=== PATIENT | female | born 1945 | race Caucasian/White ===

== ENCOUNTER 2020-04-20 14:04 | Outpatient (CLI) | payer MEDICARE, SELFPAY ==
--- NOTE | ~2020-04-20 | MR_ITS ---
EXAMINATION: MR lumbar spine wo [facility] EXAM DATE: 04/20/2020 15:31 INDICATION: Low back pain, right-sided sciatica. TECHNIQUE: Multi-sequential, multiplanar MR images of the lumbar spine were obtained without contrast . Sagittal T1, T2, T2 fat saturation images. Axial T2 weighted images. Comparison is made to prior examination from 12/11/2009. FINDINGS: There is 4 mm retrolisthesis T12 on L1 and L1 on L2. There is 6 mm anterolisthesis L5 on S1 with moderate to severe loss of this disc height. Moderate loss of the disc heights from T11 through L2. There is 2 mm anterolisthesis L3 on L4. The conus medullaris terminates at the L1/2 level and hernandez s normal signal intensity and morphology. There are no suspicious marrow signal abnormalities. [place] soft tissue is unremarkable. Level by level evaluation: T11-12: There is a mild diffuse disc bulge. Facet arthropathy: Mild. Neural foraminal stenosis: No stenosis. Central canal stenosis: No stenosis. T12-L1: There is a mild to moderate diffuse disc bulge. Facet arthropathy: Mild. Neural foraminal stenosis: Mild to moderate left left, mild right. Central canal stenosis: Mild to moderate. L1-L2: There is a moderate diffuse disc bulge. Facet arthropathy: Moderate. Neural foraminal stenosis: Moderate bilateral. Central canal stenosis: Mild to moderate. L2-L3: There is a mild to moderate diffuse disc bulge. Facet arthropathy: Moderate. Neural foraminal stenosis: Moderate bilateral. Central canal stenosis: Mild to moderate. L3-L4: There is a moderate diffuse disc bulge. Facet arthropathy: Moderate to severe. Neural foraminal stenosis: Mild to moderate left, mild right. Central canal stenosis: Moderate. L4-L5: There is a moderate diffuse disc bulge. Facet arthropathy: Moderate to severe . Ligamentum flavum enlargement. Neural foraminal stenosis: Moderate left, mild to moderate right. Central canal stenosis: Moderate. L5-S1: There is a moderate to large diffuse disc bulge. Facet arthropathy: Moderate to severe . Ligamentum flavum enlargement . Neural foraminal stenosis: Moderate to severe bilateral, left greater than right. Central canal stenosis: Moderate. Amount of L5-S1 anterolisthesis neural foraminal stenosis probably not significant changed. There has been otherwise overall some progression in spondylosis detailed above. IMPRESSION: 1. L5-S1 grade 1 anterolisthesis, moderate to severe bilateral neural foraminal stenosis. 2. Lesser spondylosis at other levels. Reviewed, dictated and finalized at location B. IMPRESSION: 1. L5-S1 grade 1 anterolisthesis, moderate to severe bilateral neural foramina l stenosis. 2. Lesser spondylosis at other levels.
== END 2020-04-20 14:05 | disposition home or self-care (01) ==
PROVIDERS: PCP Family Medicine; Visit Provider Nurse Practitioner Family
DX: M54.41 Lumbago with sciatica, right side (principal)
CPT/HCPCS: 72148

== ENCOUNTER 2022-11-27 13:17 | Outpatient (CLI) | payer MEDICARE, SELFPAY ==
--- NOTE | ~2022-11-27 | US_ITS ---
EXAMINATION: US renal BI DATE: 11/27/2022 13:40 INDICATION: E87.5 - Hyperkalemia TECHNIQUE: Multiple grayscale and Doppler ultrasound images of the kidneys were obtained. COMPARISON: None. FINDINGS: The right kidney measures 9.3 x 4.0 x 4.5 cm. The left kidney measures 9.5 x 5.5 x 3.7 cm. The kidney s demonstrate normal parenchymal echogenicity. There is no hydronephrosis. The bladder is nondistende d. IMPRESSION: Bladder not well evaluated due to lack of distention, otherwise unremarkable renal sonogram findings. Reviewed, dictated and finalized at location K. IMPRESSION: Bladder not well evaluated due to lack of distention, otherwise unremarkable re nal sonogram findings.
== END 2022-11-27 13:18 | disposition home or self-care (01) ==
PROVIDERS: PCP Family Medicine; Visit Provider Internal Medicine Nephrology
DX: E87.5 Hyperkalemia (principal)
CPT/HCPCS: 76775

== ENCOUNTER 2023-12-06 11:09 | Outpatient (CLI) | payer MEDICARE, SELFPAY ==
--- NOTE | ~2023-12-06 | CT_ITS ---
EXAMINATION: CT lumbar spine wo con DATE: 12/06/2023 11:21 INDICATION: Lumbar spinal fusion. Right leg weakness and pain. TECHNIQUE: Computed tomography (CT) of the lumbar spine was performed without intravenous contrast. A utomated exposure control and iterative reconstruction technique were employed. The dose-length produ ct was 926.95 mGy-cm. COMPARISON: Lumbar spine MRI 04/20/2020 FINDINGS: There is 3 mm retrolisthesis of T12 on L1 and L1 on L2, 4 mm anterolisthesis of L3 on L4, a nd 6 mm anterolisthesis of L5 on S1. There are changes of anterior and posterior fusion procedures fr om L4 to S1 with interbody devices, healed interbody bone graft, and pedicle screws. There is mild ch ronic anterior wedging of T12 vertebral body. There is severely decreased disc height at T11-T12 and T12-L1, moderately decreased disc height at L1-L2, mildly decreased disc height at L2-L3, and moderat pauline decreased disc height at L3-L4. The following disc levels are specifically discussed: L1-L2: The disc is bulging. There is mild bilateral facet joint osteoarthritis. There is severe right and moderate left neural foraminal stenosis. There is mild central canal stenosis. L2-L3: The disc is bulging. There is severe bilateral facet joint osteoarthritis. There is moderate b ilateral neural foraminal stenosis. There is mild central canal stenosis. L3-L4: The disc is bulging. There is severe bilateral facet joint osteoarthritis. There is mild bilat eral neural foraminal stenosis. There is moderate central canal stenosis. L4-L5: There is mild bilateral facet joint hypertrophy. There is moderate right and mild left neural foraminal stenosis. There is mild central canal stenosis with posterior decompression. L5-S1: There is mild left facet joint hypertrophy. There is moderate left neural foraminal stenosis. There is mild central canal stenosis with posterior decompression. IMPRESSION: 1. Severe lumbar and lower thoracic spondylosis. 2. Anterior and posterior fusion procedures from L4 to S1. Reviewed, dictated and finalized at location A.
== END 2023-12-06 11:10 ==
LOC: GOSHIMG 11:09
PROVIDERS: PCP Family Medicine; Visit Provider Nurse Practitioner Family
DX: M43.04 Spondylolysis, thoracic region (principal); M43.06 Spondylolysis, lumbar region; Z98.1 Arthrodesis status
CPT/HCPCS: 72131

== ENCOUNTER 2024-06-18 12:26 | Outpatient (CLI) | payer MEDICARE, SELFPAY ==
--- NOTE | ~2024-06-18 | XR_ITS ---
EXAMINATION: XR hip RT 2V w AP pelvis DATE: 06/18/2024 12:40 INDICATION: Right hip pain. TECHNIQUE: An anteroposterior view of the pelvis and 2 views of right hip were obtained. COMPARISON: Hip radiographs 11/05/13 FINDINGS: Alignment is normal. No fracture. There is moderate lumbar spondylosis. There are changes o f anterior and posterior fusion procedures from L4 to S1. There is severe osteoarthritis of the hips. Osteitis pubis is noted. IMPRESSION: 1. Severe osteoarthritis of the hips. Reviewed, dictated and finalized at location A. 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
== END 2024-06-18 12:27 | disposition home or self-care (01) ==
LOC: MICIMG 12:28
PROVIDERS: PCP Family Medicine; Visit Provider Nurse Practitioner Family
DX: M16.11 Unilateral primary osteoarthritis, right hip (principal)
CPT/HCPCS: 73502

== ENCOUNTER 2024-07-06 13:03 | Outpatient (CLI) | payer MEDICARE, SELFPAY ==
--- NOTE | ~2024-07-06 | MR_ITS ---
MRI of the right hip Clinical history: Pain Technique: Coronal T1-weighted, T2-weighted, and proton-density fat-sat images, and axial T1-weighted and proton-density fat-sat images were acquired through the pelvis. Coronal T2-weighted images and c oronal, axial, and sagittal proton-density fat-sat images were acquired through the right hip. Findings: There is no fracture or avascular necrosis of either hip. There is extensive high-grade cho ndromalacia throughout the right hip joint with small femoral head neck junction osteophytes. There i s probable mild reactive marrow edema in the anterior acetabulum. Small right hip joint effusion is p resent, likely reactive. There is joint space narrowing superiorly and superomedially. There is proba ble degenerative tearing of the anterior right acetabular labrum. There is also diffuse high-grade chondromalacia the left hip joint, with small femoral head neck junc tion osteophytes. There is susceptibility artifact at the region of the right greater trochanter, extending to the late ral soft tissues, compatible postoperative change. No acute tendon rupture/identified. No acute muscl e signal abnormality seen. No fatty atrophy evident. No soft tissue mass or fluid collection evident. IMPRESSION: Moderate to advanced bilateral hip joint osteoarthritis, right mildly worse than left, as detailed ab ove. There is small right joint effusion, likely reactive. Probable degenerative tearing of the anterior right acetabular labrum. Postoperative change about the right greater trochanter, with susceptibility artifact extending from this region to the lateral soft tissues. Correlate with prior surgical history. Reviewed, dictated and finalized at location . SPRAYER IMPRESSION: Moderate to advanced bilateral hip joint osteoarthritis, right mildly worse vanessa n left, as detailed above. There is small right joint effusion, likely reactive . Probable degenerative tearing of the anterior right acetabular labrum. Postoperative change about the right greater trochanter, with susceptibility ar tifact extending from this region to the lateral soft tissues. Correlate with p rior surgical history.
== END 2024-07-06 13:04 | disposition home or self-care (01) ==
LOC: GOSHIMG 13:04
PROVIDERS: PCP Family Medicine; Visit Provider Nurse Practitioner Family
DX: M16.0 Bilateral primary osteoarthritis of hip (principal); Z98.890 Other specified postprocedural states
CPT/HCPCS: 73721

== ENCOUNTER 2024-10-20 10:58 | Outpatient (CLI) | payer MEDICARE, SELFPAY ==
--- NOTE | 2024-10-20 11:31 | ECG_ITS ---
Test Date: 2024-10-20 11:50:38 Measurements Intervals [place] Rate: 68 P: 53 RI: 165 QRS: -48 QRSD: 101 T: 62 QT: 371 QTc: 397 Interpretive Statements SINUS RHYTHM LEFT ANTERIOR FASCICULAR BLOCK [QRS AXIS <= -45, QR IN I, RS IN II] MODERATE VOLTAGE CRITERIA FOR LVH, CONSIDER NORMAL VARIANT [MEETS CRITERIA IN ONE OF: R(aVL), S(V1), R(V5), R(V5/V6)+S(V1)] POSSIBLE SEPTAL MYOCARDIAL INFARCTION , PROBABLY OLD [30 ms Q WAVE IN V1/V2] No previous ECG available for comparison Electronically Signed On 10-20-2024 16:45:02 CDT by Abdias Craig M.D.
[2024-10-20 11:52] LABS: Hematocrit 38.4 % (37.0-47.0); Hemoglobin 12.3 g/dL (12.0-15.0)
[2024-10-20 12:04] LABS: Albumin Level 4.1 g/dL (3.5-5.1); Estimated Glomerular Filt Rate > 60; Glucose 106 mg/dL (65-110)
--- OUTSIDE RECORDS SUMMARY | 2024-10-20 13:06 | XMS_ITS | CONTINUITY OF CARE DOCUMENT ---
Author Name aakash finn Address Unknown Organization [facility] Address [address] [place] [address] Phone [phone] Care Team Providers Care Nuclear Test Technician Name Role Phone XAVIER ALEX, PENNIE F Unavailable [phone] INSURANCE PROVIDERS Payer name Policy type / Coverage type [place] red green party ID [facility] [id number]
--- OUTSIDE RECORDS SUMMARY | 2024-10-20 13:06 | XMS_ITS | Clinical Summary ---
Author Organization [facility] Address [address] [address] Phone Care Team Providers Care Flume Ride Operator Name Role Phone Unavailable Primary Care Provider Unavailabl e Allergies No known active allergies Medications Medication Sig Dispensed Refills Start Date End Date Status Coenzyme Q10 (COQ10) 100 MG capsule 1 daily 0 04/26/2018 Active aspirin 325 MG tablet 1 daily 0 04/26/2018 Act sera atorvastatin (LIPITOR) 10 MG tablet 1 daily 0 04/26/2018 Active cinnamon 500 MG capsule 1 daily 0 04/26/2018 Active amLODIPine (NORVASC) 5 MG tablet TAKE 1 TABLET BY MOUTH EVERY DAY 90 tablet 4 01/08/2022 Active Active Problems Problem Noted Date Diagnosed Date Hyperkalemia 04/28/2018 Essential (primary) hypertension 04/28/2018 Osteoarthritis 04/28/2018 Hyperlipidemia 04/28/2018 Immunizations Name Administration Dates Next Due Influenza Split High Dose Pr eservative Free IM 05/07/2017,05/07/2016,05/06/2015,05/05 Pneumococcal Polysaccharide 03/03/2013 Tetanus 06/28/2006 Family History Medical History Relation Comments Kidney disease Neg Hx Social History Tobacco Use Types Packs/Day Years Used Date Smoking Tobacco: Never Smokeless Tobacco: Never Alcohol Use Standard Drinks/Week Comments Not Currently 0 (1 standard drink = 0.6 oz pur e alcohol) Sex and Gender Information Value Date Recorded Sex Assigned at Not on file Gender Identity Not on file Sexual Orientation Not on file Last Filed Vital Signs Vital Sign Reading Time Taken Comments Blood Pressure 138/70 09/15/2018 12:01 AM CAFETERIA ATTENDANT Pulse 60 09/15/2018 12:01 AM CAFETERIA ATTENDANT Temperature 35.6 C (96 F) 09/15/2018 12:01 AM CAFETERIA ATTENDANT Respiratory Rate - - Oxygen Saturation - - Inhaled Oxygen Concentration - - Weight 104 kg (230 lb) 09/15/2018 12:01 AM CAFETERIA ATTENDANT Height 172.7 cm (5' 8 ) 09/15/2018 12:01 AM CAFETERIA ATTENDANT Body Mass Index 34.97 09/15/2018 12:01 AM CAFETERIA ATTENDANT Plan of Treatment Health Maintenance Due Date Last Done Comments Pneumococcal PPSV23/PCV13 65 + Years / Low and Medium Risk (2 of 3 - PCV) 03/03/2014 03/03/2013 Influenza Vaccine (#1) 2024
--- OUTSIDE RECORDS SUMMARY | 2024-10-20 13:06 | XMS_ITS | Clinical Summary ---
Author Organization [facility] Address [facility] [place] [address] Care Team Providers Care Rental Salesperson Name Role Phone Gregory Pineda MD Primary Care Provider [phone] Allergies Active Allergy Reactions Criticality Noted Date Comments Tramadol Other (see comment) 01/09/2024 Confusion. Medications acyclovir (ZOVIRAX) 400 MG tablet Take 2 tablets (800 mg total) by mouth 2 (two) times daily. Active nabumetone (RELAFEN) 500 MG tablet Take 1 tablet (500 mg total) by mouth 2 (two) times daily. Active omeprazole (PRILOSEC) 10 MG capsule Take 2 capsules (20 mg total) by mouth daily. Active amLODIPine (NORVASC) 5 MG tablet Take 1 tablet (5 mg total) by mouth daily. Active atorvastatin (LIPITOR) 10 MG tablet Take 1 tablet (10 mg total) by mouth nightly at bedtime. Active aspirin 81 MG chewable tablet Chew 1 tablet (81 mg total) by mouth daily. Active gabapentin (NEURONTIN) 400 MG capsule Take 300 mg by mouth daily. Active Social History Tobacco Use Types Packs/Day Years Used Date Smoking Tobacco: Never Smokeless Tobacco: Never Tobacco Cessation:Counseling Given: Not Answered Alcohol Use Standard Drinks/Week Comments Never 0 (1 standard drink = 0.6 oz pur e alcohol) Comments Unknown Sex and Gender Information Value Date Recorded Sex Assigned at Not on file Legal Sex Female 9:40 PM CDT Gender Identity Not on file Sexual Orientation Not on file Last Filed Vital Signs Vital Sign Reading Time Taken Comments Blood Pressure 183/68 01/20/2024 8:35 AM CDT Pulse 70 01/20/2024 8:30 AM CDT Temperature 36.3 C (97.4 F) 01/20/2024 7:21 AM CDT Respiratory Rate 18 01/20/2024 8:30 AM CDT Oxygen Saturation 96% 01/20/2024 8:30 AM CDT Inhaled Oxygen Concentration - - Weight 95.3 kg (210 lb) 01/09/2024 9:36 AM CDT Height 167.6 cm (5' 6 ) 01/09/2024 9:36 AM CDT Body Mass Index 33.89 01/09/2024 9:36 AM CDT Plan of Treatment Health Maintenance Due Date Last Done Comments Hepatitis C 11/29/1963 DTaP, Tdap and Td Vaccines (1 - Tdap) 06/29/2006 06/28/2006 Annual Medicare Wellness Visit 2010 Dexa Scan (General) 2010 Pneumococcal Vaccine: 65+ Years (2 of 2 - PCV) 03/03/2014 03/03/2013 RSV Immunization or 60+ Years (1 - 1-dose 75+ series) 2020 COVID-19 Vaccine ( season) 2024 05/28/2023, 06/28/2021, 11/15/2020, Additional history exists Influenza Adult (#1) 2024 05/07/2017, 05/07/2016, 05/06/2015, Additional history exists Zoster Vaccines Completed 08/01/2020, 02/03/2020 Meningococcal B Vaccine Aged Out No l onger eligible based on patient's age to complete this topic Meningococcal Vaccine Aged Out No roxy sim eligible based on patient's age to complete this topic RSV Immunizations Under 20 Months Aged Out No longer eligible based on patient's age to complete this topic Medical Devices Implanted Type Area Centrex Radio Operator Device Identifier Shelf Expiration Date Model / Serial / Lot Tecnis 1-Piece Iol With Tecnic Simplicity Delivery System Implanted:Qty: 1 on 01/20/2024 by Shravan Borrego MD at [facility] 05/18/2026 / [id number] / [place] [address] [facility] Care Teams Rental Salesperson Relationship Specialty Start Date End Date Gregory Pineda MD [address] [place] [address] PCP - General FAMILY PRACTICE 01/07/24
== END 2024-10-20 10:59 | disposition home or self-care (01) ==
PROVIDERS: PCP Family Medicine; Visit Provider Orthopaedic Surgery
DX: E78.2 Mixed hyperlipidemia (principal); E87.5 Hyperkalemia; E55.9 Vitamin D deficiency, unspecified; I12.9 Hypertensive chronic kidney disease with stage 1 through stage 4 chronic kidney disease, or unspecified chronic kidney disease; N18.31 Chronic kidney disease, stage 3a
CPT/HCPCS: 36415; 82040; 82565; 82947; 85014; 85018; 93005

== ENCOUNTER 2024-11-04 08:11 | Outpatient (CLI) | payer MEDICARE, SELFPAY ==
--- NOTE | ~2024-11-04 | NM_ITS ---
EXAMINATION: NM geovany stress w perfusion DATE: 11/04/2024 10:48 INDICATION: Left testicular block TECHNIQUE: Rest images were obtained following intravenous administration of 11.2 mCi Tc99m tetrofosm in (Myoview). The patient was infused intravenously with Lexiscan (Regadenoson). Then, 33.5 mCi Tc99m tetrofosmin (Myoview) was administered intravenously, and stress images were obtained. Data was ankur nstructed into short axis and horizontal and vertical long axis SPECT images. Gated SPECT images were also obtained. COMPARISON: None. FINDINGS: There is no definite reversible or fixed perfusion abnormality to suggest ischemia or infar ction. There is normal left ventricular chamber size, wall motion and ejection fraction. Left ventr icular ejection fraction measures >70%. IMPRESSION: 1. Normal myocardial perfusion at rest and during stress. 2. Left ventricular ejection fraction measuring >70%. Reviewed, dictated and finalized at location B.
--- OUTSIDE RECORDS SUMMARY | 2024-11-04 08:26 | XMS_ITS | Clinical Summary ---
Author Organization [facility] Address [facility] [place] [address] Care Team Providers Care Lead Business Systems Analyst Name Role Phone Gregory Pineda MD Primary Care Provider [phone] Allergies Active Allergy Reactions Criticality Noted Date [...] 2024 05/28/2023, 06/28/2021, 11/15/2020, Additional history exists Zoster Vaccines Completed 08/01/2020, [...] this topic Medical Devices Implanted Type Area Back Shoe Worker Device Identifier Shelf Expiration Date Model / Serial / Lot Tecnis 1-Piece Iol With Tecnic Simplicity Delivery System Implanted:Qty: 1 on 01/20/2024 by Shravan Borrego MD at [facility] 05/18/2026 / [id number] / Insurance [facility] Care Teams Lead Business Systems Analyst Relationship Specialty Start Date End Date Gregory Pineda MD [address] [address] PCP - General FAMILY PRACTICE 01/07/24
--- OUTSIDE RECORDS SUMMARY | 2024-11-04 08:26 | XMS_ITS | Clinical Summary ---
Author Organization [facility] Address [address] [place] [address] Phone Care Team Providers Care Deck Mate Name Role Phone Unavailable Primary Care Provider Unavailabl e Allergies No known active allergies Medications Coenzyme Q10 (COQ10) 100 MG capsule 1 daily 0 04/26/2018 Active aspirin 325 MG tablet 1 daily 0 04/26/2018 Active atorvastatin (LIPITOR) 10 MG tablet 1 daily 0 04/26/2018 Active cinnamon 500 MG capsule 1 daily 0 04/26/2018 Active amLODIPine (NORVASC) 5 MG tablet TAKE 1 TABLET BY MOUTH EVERY DAY 90 tablet 4 01/08/2022 Active Active Problems Problem Noted Date Diagnosed Date Hyperkalemia 04/28/2018 Essential (primary) hypertension 04/28/2018 Osteoarthritis 04/28/2018 Hyperlipidemia 04/28/2018 Immunizations Immunization Administration Dates Next Due Influenza Split High [...] at Not on file Legal Sex Female 9:06 AM MST Gender Identity Not on file Sexual Orientation Not on file Last Filed Vital Signs Vital Sign Reading Time Taken Comments Blood Pressure 138/70 09/15/2018 12:01 AM PROTECTION MGR Pulse 60 09/15/2018 12:01 AM PROTECTION MGR Temperature 35.6 C (96 F) 09/15/2018 12:01 AM PROTECTION MGR Respiratory Rate - - Oxygen Saturation - - Inhaled Oxygen Concentration - - Weight 104 kg (230 lb) 09/15/2018 12:01 AM PROTECTION MGR Height 172.7 cm (5' 8 ) 09/15/2018 12:01 AM PROTECTION MGR Body Mass Index 34.97 09/15/2018 12:01 AM PROTECTION MGR Plan of Treatment Health Maintenance Due Date Last Done Comments Pneumococcal PPSV23/PCV13 65 + Years / Low and Medium Risk (2 of 3 - PCV) 03/03/2014 03/03/2013 Influenza Vaccine (Season Ended) 2025
--- OUTSIDE RECORDS SUMMARY | 2024-11-04 08:26 | XMS_ITS | CONTINUITY OF CARE DOCUMENT ---
Author Name aakash finn Address Unknown Organization [facility] Address [address] [place] [address] Phone [phone] Care Team Providers Care Metal Tank Erector Name Role Phone XAVIER ALEX, PENNIE F Unavailable INSURANCE PROVIDERS Payer name Policy type / Coverage type [place] red libertarian ID [facility] [id number]
--- NOTE | 2024-11-04 08:46 | EST_ITS ---
Patient Info Name: Agustin Hood Age: 78 years : 1945 Gender: Female Ht: 66 in Wt: 220 lbs BSA: 2.20 m2 HR: 80 bpm BP: 206 / 81 mmHg Exam Date: 11/04/2024 9:41 AM Exam Location: Echo Lab Patient Status: Outpatient Admit Date: 11/04/2024 Staff Ordering Physician: Gregory Pineda MD Attending Provider: Gregory Pineda MD Exercise Technologist: hussein arboleda Exercise Physician: Christo Walker DO Exam Type: CA stress geovany w NM Study Info Indications - left anterior fascicular block A regadenoson stress test was performed. Summary 1. 1. Negative lexiscan stress test for ischemic ST changes by ECG criteria. 2. 2. Baseline hypertension. 3. 3. Nuclear scan to follow and will be reported separately. Please correlate with it. 4. 4. Patient informed of the above results. Protocol: Lexiscan Stress ECG Details Stage: REST Duration (min): 3 min : 32 sec HR (bpm): 74 SBP (mmHg): 206 DBP (mmHg): 81 Stage: REST Duration (min): 9 min : 50 sec HR (bpm): 78 SBP (mmHg): 206 DBP (mmHg): 81 Stage: STAGE 1 Duration (min): 0 min : 59 sec HR (bpm): 98 SBP (mmHg): 206 DBP (mmHg): 81 Stage: RECOVERY Duration (min): 1 min : 0 sec HR (bpm): 93 SBP (mmHg): 193 DBP (mmHg): 69 Stage: RECOVERY Duration (min): 1 min : 35 sec HR (bpm): 90 SBP (mmHg): 193 DBP (mmHg): 69 Rest HR: 78 bpm Peak HR: 99 bpm Rest Sys BP: 206 mmHg Peak Sys BP: 193 mmHg Max Pred HR: 142 bpm % Max Pred HR: 70 % Target HR: 121 bpm Max RPP: 19,107 bpm*mmHg Termination Reason: Completed protocol Cardiac Symptoms: None Total Time: 1 min : 0 sec Rest Wilson BP: 81 mmHg Peak Wilson BP: 69 mmHg Total Dose: 0.4 mg Resting ECG Sinus rhythm. Stress ECG No ST changes. Arrhythmias None. Report Signatures
== END 2024-11-04 08:12 | disposition home or self-care (01) ==
PROVIDERS: PCP Family Medicine; Visit Provider Family Medicine
DX: I21.29 ST elevation (STEMI) myocardial infarction involving other sites (principal); I44.4 Left anterior fascicular block; M25.551 Pain in right hip; S73.199A Other sprain of unspecified hip, initial encounter; S76.019A Strain of muscle, fascia and tendon of unspecified hip, initial encounter; X58.XXXA Exposure to other specified factors, initial encounter
CPT/HCPCS: 78452; 93017; A9502; J2785

== ENCOUNTER 2024-12-25 09:43 | Outpatient (CLI) | payer MEDICARE, SELFPAY ==
--- OUTSIDE RECORDS SUMMARY | 2024-12-25 09:58 | XMS_ITS | Clinical Summary ---
Author Organization [facility] Address [address] [place] [address] Phone Care Team Providers Care Verifier Operator Name Role Phone Unavailable Primary Care [...] Comments Blood Pressure 138/70 09/15/2018 12:01 AM BELT SANDER STONE Pulse 60 09/15/2018 12:01 AM BELT SANDER STONE Temperature 35.6 C (96 F) 09/15/2018 12:01 AM BELT SANDER STONE Respiratory Rate - - Oxygen Saturation - - Inhaled Oxygen Concentration - - Weight 104 kg (230 lb) 09/15/2018 12:01 AM BELT SANDER STONE Height 172.7 cm (5' 8) 09/15/2018 12:01 AM BELT SANDER STONE Body Mass Index 34.97 09/15/2018 12:01 AM BELT SANDER STONE Plan of Treatment Health Maintenance Due Date Last Done Comments Pneumococcal PPSV23/PCV13 65 + Years / Low and Medium Risk (2 of 3 - PCV) 03/03/2014 03/03/2013 Influenza Vaccine (Season Ended) 2025
--- OUTSIDE RECORDS SUMMARY | 2024-12-25 09:58 | XMS_ITS | CONTINUITY OF CARE DOCUMENT ---
Author Name aakash finn Address Unknown Organization [facility] Address [address] [place] [address] Phone [phone] Care Team Providers Care Auditing Manager Name Role Phone XAVIER ALEX, PENNIE F Unavailable INSURANCE PROVIDERS Payer name Policy type / Coverage type [place] red republican ID [facility] [id number]
[2024-12-25 11:23] LABS: Basophils Absolute Auto 0.1 K/mm3 (0.0-0.1); Basophils Percent Auto 0.5 % (0.2-1.2); Eosinophils Absolute Auto 0.1 K/mm3 (0-0.3); Eosinophils Percent Auto 1.1 % (0-4.4); Hematocrit 39.2 % (37.0-47.0); Hemoglobin 12.4 g/dL (12.0-15.0); Immature Granulocyte Absolute 0.01 K/mm3 (0.00-0.031); Immature Granulocyte Percent A 0.1 % (0-0.5); Lymphocytes Absolute Auto 2.53 K/mm3 (0.9-3.2); Lymphocytes Percent Auto 27.8 % (18.3-44.2); Mean Corpuscular HGB Conc 31.6 g/dl (32-36); Mean Corpuscular Hemoglobin 29.6 pg (26-34); Mean Corpuscular Volume 93.6 fl (80-100); Mean Platelet Volume 10.1 fl (7.4-10.4); Monocytes Absolute Auto 0.9 K/mm3 (0.1-0.6); Monocytes Percent Auto 9.3 % (2.6-8.5); Neutrophils Absolute Auto 5.6 K/mm3 (1.3-6.7); Neutrophils Percent Auto 61.2 % (45.5-73.1); Platelet Count Result 308 k/mm3 (150-375); Red Blood Count 4.19 M/mm3 (4.2-5.4); Red Cell Distribution Width 13.4 % (11.5-14.5); White Blood Count 9.1 K/mm3 (4.5-10.0)
[2024-12-25 11:32] LABS: Albumin Level 4.3 g/dL (3.5-5.1); Estimated Glomerular Filt Rate 56; Glucose 107 mg/dL (65-110); Urine Cotinine NEGATIVE
[2024-12-25 11:34] LABS: Hemoglobin A1C 6.4 % (<5.7)
[2024-12-25 12:35] LABS: MRSA (PCR) NOT DETECTED (NOT DETECTE)
== END 2024-12-25 09:44 | disposition home or self-care (01) ==
LOC: ANHSURGERY 09:46
PROVIDERS: PCP Family Medicine; Visit Provider Orthopaedic Surgery
DX: Z01.818 Encounter for other preprocedural examination (principal); M16.11 Unilateral primary osteoarthritis, right hip
CPT/HCPCS: 80307; 82040; 82565; 82947; 83036; 85025; 87641

== ENCOUNTER 2025-01-11 01:39 | Day surgery (SDC) | payer MEDICARE, SELFPAY ==
--- NOTE | 2024-12-25 09:52 | PC.NURSE ---
Report to the Outpatient Waiting Room, entrance under the green pavilion located off [facility], at time ___10 AM____ on date _01/11/25 . Planned Procedure Time: __1200 NOON .? Time changes happen often and if your time is changed the preop area will call you the afternoon before. - You and your visitor will be asked to self-screen and do not enter if you have any COVID symptoms. Please call surgeon if you need to reschedule. - A mask is optional within the hospital at this time. Patients may have clear liquids (water, carbonated beverages, clear teas, apple juice) until 3 hours prior to surgery ( 9AM) with a maximum of 20 ounces. - No food from midnight until time of surgery and no smoking, or chewing tobacco (or any form of nicotine). No chewing gum, candy or mints. Take only the following medications with a SIP of water on the morning of surgery: _AMLODIPINE,EYE DROPS,HYDROCODONE IF NEEDED FOR PAIN DO NOT STOP ANY OF YOUR OTHER PRESCRIPTION MEDICATIONS PRIOR TO SURGERY EXCEPT THE FOLLOWING Hold all vitamins and supplements for 3 days per anesthesiologist.LAST DSOE 01/07/25 Medications to discontinue per physician _HOLD ASPIRIN 7 DAYS PRE OP PER DR CORONADO Date to take last dose____01/03/25 Please no make-up, nail greenlandic, hairspray, perfume, deodorant, or body powder the day of surgery.? No jewelry (including any body piercings) or valuables the day of surgery, leave them at home.? Please take a shower or bath the night before, or the morning of, surgery with an antibacterial soap.? Wear comfortable, loose fitting clothing.? Children are encouraged to wear pajamas. - Jewelry must be removed prior to entering the operating room.? Rings and piercings that are not removed may be cut off. - The hospital will not accept responsibility for valuables.? - Please leave all valuables, including medications, at home the day of surgery. If you are going home after surgery, a licensed high lift driver must drive you home.? - NO public transportation without another adult if you receive anesthesia. - We recommend that an adult stay with you for 24 hours following discharge. - We also recommend that you do not drive, make important decision, drink alcoholic beverages, or take any drugs that were not prescribed by your health care provider for at least 24 hours after your discharge time. For Pediatric surgeries, we recommend two adults accompany the child home. Follow any additional instructions given to you from your surgeon. VERBAL AND WRITTEN instructions given to __PATIENT_AND DAUGHTER KELLY and asked if any additional questions and then verbalized understanding. Patient advised to call surgeon office or pre surgery nurse liaison [phone] if any additional questions.
[2024-12-25 09:58] VITALS: BMI 36.9
[2024-12-25 10:52] VITALS: BP 148/73; PULSE 67; RESP 18; TEMP 36.6; O2SAT 98
[2025-01-11] VITALS (12 sets, daily range): BP systolic 104–188; BP diastolic 52–90; PULSE 63–85; RESP 12–18; TEMP 35.6–37; O2SAT 95–100
--- NOTE | ~2025-01-11 | XR_ITS ---
EXAMINATION: XR hip RT min 2V DATE: 01/11/2025 14:59 INDICATION: Postoperative evaluation following right total hip arthroplasty TECHNIQUE: Anteroposterior and lateral views of the right hip were obtained. COMPARISON: 12/25/2024 FINDINGS: Interval placement of a noncemented right total hip arthroplasty which appears well seated in near an atomic alignment. Expected soft tissue gas in the postoperative bed. No fractures identified. IMPRESSION: 1. Right total hip arthroplasty, negative for postoperative purposes. Reviewed, dictated and finalized at location B.
--- OUTSIDE RECORDS SUMMARY | 2025-01-11 01:42 | XMS_ITS | CONTINUITY OF CARE DOCUMENT ---
Author Name aakash finn Address Unknown Organization [facility] Address [address] [place] [address] Phone [phone] Care Team Providers Care Web Consultant Name Role Phone XAVIER ALEX, PENNIE F Unavailable [phone] INSURANCE PROVIDERS Payer name Policy type / Coverage type [place] red green party ID [facility] [id number]
--- OUTSIDE RECORDS SUMMARY | 2025-01-11 01:42 | XMS_ITS | Clinical Summary ---
Author Organization [facility] Address [facility] [place] [address] Care Team Providers Care Meteorologist Liaison Name Role Phone Gregory Pineda MD Primary Care Provider [phone] Allergies Active Allergy Reactions Criticality Noted Date [...] 9:36 AM CDT Height 167.6 cm (5' 6) 01/09/2024 9:36 AM CDT Body Mass Index 33.89 01/09/2024 9:36 AM CDT Plan of Treatment Health Maintenance Due Date Last Done Comments Hepatitis C 11/29/1963 DTaP, Tdap and Td Vaccines (1 - Tdap) 06/29/2006 06/28/2006 Annual Medicare Wellness Visit 2010 Dexa Scan (General) 2010 Pneumococcal Vaccine: 50+ Years (2 of 2 - PCV) 03/03/2014 [...] this topic Medical Devices Implanted Type Area Vending Manager Device Identifier Shelf Expiration Date Model / Serial / Lot Tecnis 1-Piece Iol With Tecnic Simplicity Delivery System Implanted:Qty: 1 on 01/20/2024 by Shravan Borrego MD at [facility] 05/18/2026 / [id number] / Insurance [facility] Care Teams Meteorologist Liaison Relationship Specialty Start Date End Date Gregory Pineda MD [address] [address] PCP - General FAMILY PRACTICE 01/07/24
--- OUTSIDE RECORDS SUMMARY | 2025-01-11 01:42 | XMS_ITS | Clinical Summary ---
Author Organization [facility] Address [address] [place] [address] Phone Care Team Providers Care Barrel Loader And Cleaner Name Role Phone Unavailable Primary Care Provider [...] Comments Blood Pressure 138/70 09/15/2018 12:01 AM SYSTEMS DEVELOPER Pulse 60 09/15/2018 12:01 AM SYSTEMS DEVELOPER Temperature 35.6 C (96 F) 09/15/2018 12:01 AM SYSTEMS DEVELOPER Respiratory Rate - - Oxygen Saturation - - Inhaled Oxygen Concentration - - Weight 104 kg (230 lb) 09/15/2018 12:01 AM SYSTEMS DEVELOPER Height 172.7 cm (5' 8) 09/15/2018 12:01 AM SYSTEMS DEVELOPER Body Mass Index 34.97 09/15/2018 12:01 AM SYSTEMS DEVELOPER Plan of Treatment Health Maintenance Due Date Last Done Comments Pneumococcal PPSV23/PCV13 65 + Years / Low and Medium Risk (2 of 3 - PCV) 03/03/2014 03/03/2013 Influenza Vaccine (Season Ended) 2025
[2025-01-11] MEDS: ACETAMINOPHEN 500 MG TABLET 1000 MG PO (10:25)
[2025-01-11] MEDS: LACTATED RINGERS 1,000 ML 30 ML IV CONT ×2 (10:35→14:28)
[2025-01-11] MEDS: TRANEXAMIC ACID 1,000MG/ISO100 1,000 MG/100 ML BAG 200 MG IVPB (10:36)
--- NOTE | 2025-01-11 11:55 | WPDHPUPDATE1 ---
History and Physical Update Update Date/Time: 01/11/25 11:55 History and Physical has been reviewed, including an updated exam of the patient. There are NO changes in the patient's condition. Risks, benefits, and alternatives have been discussed and questions answered. Patient agrees to proceed with procedure.
--- NOTE | 2025-01-11 12:08 | P.PNAN_ITS ---
Anes - Initial Pre Proc Eval Procedure: Operation Date: 01/11/25 12:00 Proposed Procedures p Right Total Hip Arthroplasty - Pavan Comer MD Date/Time: 01/11/25 12:08 Surgeon: Pavan Comer MD Pre Op Diagnosis: Prim O A Rt Hip Patient Data Age: 79 Gender: F Height: 1.63 m Weight: 95.4 kg Last Vital Signs Temp 97.3 F L 01/11/25 09:50 Pulse 68 01/11/25 09:50 Resp 16 01/11/25 09:50 BP 153/76 H 01/11/25 09:50 Pulse Ox 100 01/11/25 09:50 O2 Del Method Room Air 01/11/25 09:50 Allergies Allergy/AdvReac Type Severity Reaction Status Date / Time cephalexin (From Keflex) Allergy Unknown Hives Verified 01/11/25 10:08 tramadol AdvReac Severe alltered Verified 01/11/25 10:08 mental status Home Medications ?Medication ?Instructions ?Recorded ?Confirmed ?Type coenzyme Q10 10 mg capsule (Co 10 mg PO ONCE 06/02/19 12/25/24 History Q-10) aspirin 81 mg tablet,delayed 81 mg PO DAILY 04/12/20 01/11/25 History release (Adult Aspirin Regimen) acyclovir 400 mg tablet 800 mg PO BID 07/17/22 01/11/25 History amlodipine 5 mg tablet 5 mg PO DAILY #90 tabs 02/17/24 01/11/25 Rx atorvastatin 10 mg tablet See Rx Instructions .Route 05/07/24 01/11/25 Rx .COMPLEX #90 tabs omeprazole 20 mg capsule,delayed 20 mg PO DAILY #90 caps 10/30/24 01/11/25 Rx release hydrocodone 5 mg-acetaminophen 325 1 tablet PO Q6H PRN pain #90 tabs 11/11/24 01/11/25 Rx mg tablet mupirocin 2 % topical ointment 1 applic topical BID #22 grams 12/09/24 12/25/24 Rx (Centany) furosemide 20 mg tablet 20 mg PO QAM #7 tabs 12/17/24 12/25/24 Rx brimonidine 0.2 %-timolol 0.5 % 1 drp LEFT EYE BID 12/25/24 01/11/25 History eye drops coQ10 (ubiquinol) 200 mg capsule 200 mg PO DAILY 12/25/24 01/11/25 History (Active Q) prednisolone acetate 1 % eye 1 drp LEFT EYE DAILY 12/25/24 01/11/25 History drops,suspension Laboratory Tests 01/11/25 01/11/25 10:42 11:26 Blood Type Cancelled A Positive Antibody Screen Cancelled Pending Patient hx anesthesia problems: none Family hx anesthesia problems: none Results Review: All pre-operative results and documents have been reviewed as part of the pre- operative evaluation. [facility] Past Medical History Medical History Colonoscopy planned FH: cholecystectomy Cataract fragments in left eye following surgery Diabetes mellitus with nephropathy BMI 35.0-35.9,adult Adult BMI 33.0-33.9 kg/sq m BMI 34.0-34.9,adult Hyperkalemia Diabetes mellitus Chronic low back pain with right-sided sciatica Essential hypertension Mixed hyperlipidemia Surgical History Surgical History History of lumbar surgery H/O total knee replacement History of arthroplasty of left knee History of hysterectomy History of tonsillectomy History of cholecystectomy Family History Family History Mother Hypertension Father Family history of diabetes mellitus in first degree relative Diabetes mellitus Atherosclerosis Sibling Cancer Social History Social History Smoking status: Never smoker Second hand tobacco smoke exposure: No Alcohol intake: never Substance use: never Substance use type: does not use Do You Feel Safe in your Home?: Yes Lack of Transportation: No Lack of Food: Never True Current Housing: I Have Housing Concerned About Future Housing: No Difficulty Paying Gas/Electric Bills: No Difficulty Paying for Meds: No Currently Unemployed: No Education: High School Diploma/GED Difficulty w/ Childcare or Family Care: No Living arrangements: with family 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/Education: 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 Informed Consent: The patient's anesthetic plan and its attendant risks and benefits were di scussed with the patient/family/POA. Questions were solicited and answers provided to the satisfaction of the patient/family/POA.
[2025-01-11] MEDS: CLINDAMYCIN 900 MG/D5W 50 ML 900 MG/50 ML PIGGYBACK 50 MG IVPB (12:15)
[2025-01-11] MEDS: SODIUM CHLORIDE 0.9% IV 37.7 ML, MORPHINE SULFATE INJ (*CRX) 2 MG, ROPivacaine HCL 1% 2... INFILTRATE (13:08)
[2025-01-11] MEDS: VANCOMYCIN HCL 1,000 MG VIAL 1000 MG TOPICAL (14:04)
--- NOTE | 2025-01-11 14:11 | SUR.OPER ---
EBL 300
--- NOTE | 2025-01-11 14:48 | P.OP_ITS ---
Procedure Note - Detailed Date of Procedure 01/11/25 Pre-op Diagnosis Right hip degenerative arthritis. Post-op Diagnosis Same Procedure Performed Right Total Hip Arthroplasty Surgeon Pavan Comer MD Anesthesia General Findings Morbid obesity. Previous scar extended. Abductor repair intact. Excellent stabi lity of the hip. Prevena dressing used. Description of Procedure The patient was given preoperative antibiotics. A general anesthetic was administered. The patient was carefully placed in the lateral decubitus position on the PEG board. The shoulders and hips were carefully positioned for component and leg length positioning reference. The hip was prepped and draped in the usual sterile fashion. A longitudinal incision was created over the posterior aspect of the greater trochanter. Careful dissection was brought down through the deep fascia with electrocautery. A minimally invasive optimized posterior approach to the hip was performed. The short external rotators and capsule were taken down in an L-shaped capsulotomy. The tissue was tagged for later repair using number 2 high strength suture. The femoral neck was measured and taken in situ. The femoral head was removed. The acetabulum was carefully exposed. The inferior capsule was released. The labrum was resected. The acetabulum was sequentially reamed to the intended cup size. The cup was impacted into position with excellent press-fit. Typical anatomic landmarks, including the bony contact points as well as the inferior transverse acetabular ligament were used to confirm cup positioning with preoperative templating. Attention was turned to the femur, which was carefully exposed. The hip was reamed and then broached sequentially. Excellent press-fit was obtained with the broach. The hip was trialed. Measurements were utilized, including the lesser trochanter as well as the center of the femoral head and the tip of the trochanter, and excellent assessment of the offset and leg lengths were confirmed. The real component was impacted into position. Trialing confirmed appropriate leg length and offset with soft tissue balancing as well apparent feel of the leg, both at the knee and the heel. Soft tissues were assessed using the the iliotibial band. Reduction of the posterior capsule and external rotators were also used as a secondary assessment. The hip was copiously irrigated with pulsatile lavage periodically throughout the procedure. The real components were then assembled and reduced. The hip was stable throughout typical maneuvers, including extension, external rotation to 70 degrees, the position of sleep as well as flexion to 90 degrees with internal rotation past 35 degrees. The shake test confirmed stability without impingement. Osteophytes were removed as necessary. The short external rotators and capsule were repaired back to the posterior trochanter through drill holes. The deep fascia was repaired with running number 2 barbed suture, followed by 2-0 Stratafix suture and 3-0 Stratafix suture in the dermis. Steri-Strips were placed on the skin, followed by a sterile occlusive dressing. There were no complications. Meticulous hemostasis was maintained with the AquaMantys device. The patient was brought to the recovery room in stable condition. There were no complications. Implants The [place] [employer] hip stem, high offset size 2 , was utilized with excellent press-fit. The 50 mm Trident II acetabular component was impacted with excellent press-fit stability. Standard polyethylene liner the +2.5, 36 mm Biolox ceramic femoral head was utilized. Estimated Blood Loss 200 Drains No Packing No Pathology None sent Complications No immediate complications Condition Stable Disposition PACU [facility] Billing Surgery - Charge Forward: Surgery Billing
[2025-01-11] MEDS: fentaNYL CITRATE INJ (*CRX) 100 MCG/2 ML VIAL 25 MCG IV PUSH ×4 (15:04→15:27)
[2025-01-11] MEDS: HYDROmorphone HCL INJ (*CRX) 2 MG/ML VIAL 1 MG IV PUSH (16:57)
[2025-01-11] MEDS: ceFAZolin 2 GM/D5W 50 ML 2 GM/50 ML BAG IVPB ×2 (17:01→23:50)
[2025-01-11] MEDS: ONDANSETRON INJ 4 MG/2 ML VIAL IV PUSH (17:02)
[2025-01-11] MEDS: ACYCLOVIR 400 MG TABLET 800 MG PO (17:02)
[2025-01-11] MEDS: MELOXICAM 7.5 MG TABLET PO (17:02)
[2025-01-11] MEDS: CYCLOBENZAPRINE HCL 10 MG TABLET PO (17:02)
[2025-01-11] MEDS: ASPIRIN 81 MG ENTERIC TABLET PO (17:02)
[2025-01-11] MEDS: SENNA/DOCUSATE SODIUM TABLET 2 TAB PO (17:02)
[2025-01-11] MEDS: ACETAMINOPHEN 325 MG TABLET 650 MG PO ×2 (17:10→23:50)
[2025-01-11] MEDS: FAMOTIDINE 20 MG TABLET PO (20:39)
[2025-01-11] MEDS: TIMOLOL MALEATE 0.5% OP SOLN 5 ML BOTTLE 1 DROP LEFT EYE (20:39)
[2025-01-11] MEDS: oxyCODONE HCL (*CRX) 5 MG TAB IR PO (20:39)
[2025-01-11] MEDS: BRIMONIDINE TARTRATE 0.2% OP SOLN 5 ML BTL 1 DROP LEFT EYE (20:40)
--- NOTE | 2025-01-11 20:43 | P.CONIM_ITS ---
Assessment and Plan Assessment and plan (1) Degenerative arthritis of hip: Code(s): M16.9 - Osteoarthritis of hip, unspecified Status: Acute Assessment and Plan: Postoperative day 0 status post right total hip arthroplasty. Wound care, pain control, and DVT prophylaxis deferred to primary service. (2) Essential hypertension: Code(s): I10 - Essential (primary) hypertension Status: Acute Assessment and Plan: Blood pressures have been running high postoperatively, likely due to pain. Resume amlodipine 5 mg and continue to monitor closely. (3) Mixed hyperlipidemia: Code(s): E78.2 - Mixed hyperlipidemia Status: Acute Assessment and Plan: Continue atorvastatin check LFTs in a.m. (4) Type 2 diabetes mellitus with peripheral neuropathy: Code(s): E11.42 - Type 2 diabetes mellitus with diabetic polyneuropathy Status: Acute Assessment and Plan: Diet-controlled with a recent hemoglobin A1c of 6 4%. (5) Gastroesophageal reflux disease: Code(s): K21.9 - Gastro-esophageal reflux disease without esophagitis Status: Acute Assessment and Plan: Continue PPI. (6) Chronic kidney disease, stage 3: Qualifiers: Chronic kidney disease stage 3 subtype: stage 3a (GFR 45-59) Qualified Code(s): N18.31 - Chronic kidney disease, stage 3a Code(s): N18.30 - Chronic kidney disease, stage 3 unspecified Status: Acute Assessment and Plan: BMP in a.m. Plan Thank you for allowing us to participate in this patient's care. Please do not hesitate to contact us with any questions. HPI Date of Consult Consult date: 01/12/25 Requesting Physician: Pavan Comer MD Primary Care Provider: Gregory Pineda MD Consult Narrative Reason for consult: medical management Narrative: This is a very pleasant 79-year-old female with degenerative arthritis, hypertension, hyperlipidemia, diet-controlled type 2 diabetes mellitus, chronic kidney disease stage 3, glaucoma, and gastroesophageal reflux disease whom the hospitalist service has been consulted for help managing her medical conditions postoperatively. She presented today for elective right total hip arthroplasty due to ongoing pain despite conservative outpatient treatment. Her surgery was performed under general anesthesia with no immediate complications documented and an estimated blood loss of 200 mL. Postoperatively she has done quite well and states her plain is manageable. She denies fever, chills, sweats, chest pain, shortness a breath, nausea, and vomiting. She also denies paresthesias, skin color, and temperature changes distal to the surgical site. Regarding her chronic medical conditions, she reports that they are well contr olled on her home medications. Her diabetes is now diet controlled and she does not check her glucose at home. Most recent hemoglobin A1c was 6.4%. She denies history of venous thromboembolism. Review of Systems Review of Systems: 12 systems were reviewed and are negativ e except for as per HPI. [facility] Past Medical History Medical History (Updated 01/11/25 @ 20:52 by Rox Barrios PA-C) Chronic kidney disease, stage 3 Vitamin D deficiency, unspecified Type 2 diabetes mellitus with peripheral neuropathy Gastroesophageal reflux disease Chronic low back pain with right-sided sciatica Essential hypertension Mixed hyperlipidemia Surgical History Surgical History (Updated 01/11/25 @ 20:46 by Rox Barrios PA-C) History of bilateral knee arthroplasty (2011) History of cervical spinal surgery History of total right hip arthroplasty (01/11/25) History of cataract extraction with lens replacement History of lumbar surgery History of hysterectomy History of tonsillectomy History of cholecystectomy Family History Family History Mother Hypertension Father Family history of diabetes mellitus in first degree relative Diabetes mellitus Atherosclerosis Sibling Cancer Social History Social History (Updated 01/11/25 @ 20:51 by Rox Barrios PA-C) Social History: Surrogate medical decision maker: Amanda Nieto, daughter. Code status: Full code. Smoking status: Never smoker Second hand tobacco smoke exposure: No Alcohol intake: never Substance use: never Substance use type: does not use Do You Feel Safe in your Home?: Yes Lack of Transportation: No Lack of Food: Never True Current Housing: I Have Housing Concerned About Future Housing: No Difficulty Paying Gas/Electric Bills: No Difficulty Paying for Meds: No Currently Unemployed: No Education: Decline to Answer Difficulty w/ Childcare or Family Care: No Living arrangements: with family Additional living arrangements comments: Lives in [place]. Occupation/Education: retired Additional occupation/education comments: [place]. Spiritual care concerns: No Meds Home Medications and Allergies Home Medications ?Medication ?Instructions ?Recorded ?Confirmed ?Type coenzyme Q10 10 mg capsule (Co 10 mg PO ONCE 06/02/19 12/25/24 History Q-10) aspirin 81 mg tablet,delayed 81 mg PO DAILY 04/12/20 01/11/25 History release (Adult Aspirin Regimen) acyclovir 400 mg tablet 800 mg PO BID 07/17/22 01/11/25 History amlodipine 5 mg tablet 5 mg PO DAILY #90 tabs 02/17/24 01/11/25 Rx atorvastatin 10 mg tablet See Rx Instructions .Route 05/07/24 01/11/25 Rx .COMPLEX #90 tabs omeprazole 20 mg capsule,delayed 20 mg PO DAILY #90 caps 10/30/24 01/11/25 Rx release hydrocodone 5 mg-acetaminophen 325 1 tablet PO Q6H PRN pain #90 tabs 11/11/24 01/11/25 Rx mg tablet mupirocin 2 % topical ointment 1 applic topical BID #22 grams 12/09/24 12/25/24 Rx (Centany) furosemide 20 mg tablet 20 mg PO QAM #7 tabs 12/17/24 12/25/24 Rx brimonidine 0.2 %-timolol 0.5 % 1 drp LEFT EYE BID 12/25/24 01/11/25 History eye drops coQ10 (ubiquinol) 200 mg capsule 200 mg PO DAILY 12/25/24 01/11/25 History (Active Q) prednisolone acetate 1 % eye 1 drp LEFT EYE DAILY 12/25/24 01/11/25 History drops,suspension aspirin 81 mg tablet,delayed 81 mg PO BID 14 days #28 tabs 01/11/25 Rx release meloxicam 15 mg tablet 15 mg PO DAILY #30 tabs 01/11/25 Rx oxycodone-acetaminophen 5 mg-325 1 - 2 tablet PO Q4-6H PRN pain 7 01/11/25 Rx mg tablet days #30 tabs Allergies Allergy/AdvReac Type Severity Reaction Status Date / Time cephalexin (From [facility] Labs) Allergy Unknown Hives Verified 01/11/25 10:08 tramadol AdvReac Severe alltered Verified 01/11/25 10:08 mental status Vital Signs Vital Signs - 24 hr 01/11/25 09:50 01/11/25 14:28 01/11/25 14:40 Temperature 97.3 F L 97.0 F L Pulse Rate 68 68 68 Respiratory Rate 16 18 18 Blood Pressure 153/76 H 104/75 155/85 H Pulse Oximetry 100 100 100 Oxygen Delivery Room Air Simple Face Mask Simple Face Mask Oxygen Flow Rate 8 8 01/11/25 14:55 01/11/25 15:10 01/11/25 15:25 Temperature Pulse Rate 68 68 63 Respiratory Rate 18 12 12 Blood Pressure 150/80 H 166/52 H 162/63 H Pulse Oximetry 100 97 95 Oxygen Delivery Simple Face Mask Room Air Room Air Oxygen Flow Rate 8 01/11/25 15:40 01/11/25 15:55 01/11/25 16:15 Temperature 97.5 F L Pulse Rate 70 73 72 Respiratory Rate 14 14 15 Blood Pressure 167/74 H 168/65 H 188/84 H Pulse Oximetry 95 95 97 Oxygen Delivery Room Air Room Air Oxygen Flow Rate 01/11/25 16:45 01/11/25 17:45 Temperature 97.8 F 96.1 F L Pulse Rate 71 79 Respiratory Rate 15 15 Blood Pressure 174/90 H 150/69 H Pulse Oximetry 96 98 Oxygen Delivery Oxygen Flow Rate Exam Narrative: General: Well-developed, nontoxic-appearing female lying on her left side in bed in no distress. Weight: 95.4 kg. BMI: 36.1. HEENT: PERRL, EOMI. Sclera anicteric. Oral mucosa moist. Neck: Supple. Respiratory: Lungs are clear to auscultation bilaterally. Cardiovascular: Regular rate and rhythm with S1-S2. No murmur, rub, or gallop. Gastrointestinal: Abdomen is soft, nontender, and nondistended with positive bowel sounds. No organomegaly. Skin: Warm and dry. No rash or lesions on limited exam. Musculoskeletal: Wound VAC in place on the right hip incision. Extremities: No cyanosis, clubbing, or edema. Radial and pedal pulses intact. Neurological: Alert. Cranial nerves 2-12 are grossly intact. No gross focal deficits to casual conversation. Psychiatric: Pleasant and cooperative with normal mood and affect. Judgment and insight intact. Hospitalist MIPS Advance Care Plan I have confirmed that the patient's Advanced Care Plan is present, code status is documented, or surrogate decision maker is listed in patient medical record.: Yes Medication Reconciliation I have utilized all available resources to obtain, update and review the patients current medications (includes all prescriptions, OTC, herbals, cannabis, and nutritional supplements).: Yes
[2025-01-12 01:45] VITALS: BP 145/71; PULSE 79; RESP 18; TEMP 36.9; O2SAT 100
[2025-01-12] MEDS: oxyCODONE HCL (*CRX) 5 MG TAB IR PO (03:16)
[2025-01-12] MEDS: ACETAMINOPHEN 325 MG TABLET 650 MG PO (05:21)
[2025-01-12 05:45] VITALS: BP 132/70; PULSE 68; RESP 18; TEMP 36.6; O2SAT 99
[2025-01-12 06:32] LABS: Basophils Percent Auto 0.3 % (0.2-1.2); Eosinophils Absolute Auto 0.3 K/mm3 (0-0.3); Eosinophils Percent Auto 2.3 % (0-4.4); Hematocrit 36.6 % (37.0-47.0); Hemoglobin 11.5 g/dL (12.0-15.0); Immature Granulocyte Absolute 0.05 K/mm3 (0.00-0.031); Immature Granulocyte Percent A 0.4 % (0-0.5); Lymphocytes Absolute Auto 1.52 K/mm3 (0.9-3.2); Lymphocytes Percent Auto 11.1 % (18.3-44.2); Mean Corpuscular HGB Conc 31.4 g/dl (32-36); Mean Corpuscular Hemoglobin 29.9 pg (26-34); Mean Corpuscular Volume 95.3 fl (80-100); Mean Platelet Volume 10.7 fl (7.4-10.4); Monocytes Percent Auto 7.5 % (2.6-8.5); Neutrophils Absolute Auto 10.7 K/mm3 (1.3-6.7); Neutrophils Percent Auto 78.4 % (45.5-73.1); Platelet Count Result 254 k/mm3 (150-375); Red Blood Count 3.84 M/mm3 (4.2-5.4); Red Cell Distribution Width 13.7 % (11.5-14.5); White Blood Count 13.7 K/mm3 (4.5-10.0)
--- NOTE | 2025-01-12 06:42 | PM.IMPN ---
Progress Note: A&P Assessment and Plan (1) Degenerative arthritis of hip: Code(s): M16.9 - Osteoarthritis of hip, unspecified Status: Acute Assessment and Plan: Post op day 1 s/p Right total hip replacement - continue to follow ortho order set - at this time, medically patient is clear for discharge. follow up with ortho per recommendations (2) Type 2 diabetes mellitus with peripheral neuropathy: Code(s): E11.42 - Type 2 diabetes mellitus with diabetic polyneuropathy Status: Acute Assessment and Plan: continue home medications accu checks per order hypoglycemic protocol (3) Gastroesophageal reflux disease: Code(s): K21.9 - Gastro-esophageal reflux disease without esophagitis Status: Acute Assessment and Plan: continue home medications (4) Mixed hyperlipidemia: Code(s): E78.2 - Mixed hyperlipidemia Status: Acute Assessment and Plan: continue home medication (5) Essential hypertension: Code(s): I10 - Essential (primary) hypertension Status: Acute Assessment and Plan: continue home medications (6) Chronic kidney disease, stage 3: Qualifiers: Chronic kidney disease stage 3 subtype: stage 3a (GFR 45-59) Qualified Code(s): N18.31 - Chronic kidney disease, stage 3a Code(s): N18.30 - Chronic kidney disease, stage 3 unspecified Status: Acute Assessment and Plan: monitor BMP Plan - Continue posts operative management per ortho - at this time, medically patient is clear for discharge. follow up with ortho per recommendations Time Spent With Patient Time with patient: 25 - 35 minutes Subjective Date/time seen: 01/12/25 06:42 Interval history: patient is sitting up in chair post therapy session. patient denies any distress. reports pain is minimal. Patient is ready for discharge per ortho. patient denies any chest pain, SOB, headache, N/V/D, cough or distress. Review of Systems Review of Systems: 12 systems were reviewed and are negative except for as per HPI. Exam Narrative: General: Well-developed, nontoxic-appearing female lying on her left side in bed in no distress. Weight: 95.4 kg. BMI: 36.1. HEENT: PERRL, EOMI. Sclera anicteric. Oral mucosa moist. Neck: Supple. Respiratory: Lungs are clear to auscultation bilaterally. Cardiovascular: Regular rate and rhythm with S1-S2. No murmur, rub, or gallop. Gastrointestinal: Abdomen is soft, nontender, and nondistended with positive bowel sounds. No organomegaly. Skin: Warm and dry. No rash or lesions on limited exam. Musculoskeletal: Wound VAC in place on the right hip incision. Extremities: No cyanosis, clubbing, or edema. Radial and pedal pulses intact. Neurological: Alert. Cranial nerves 2-12 are grossly intact. No gross focal deficits to casual conversation. Psychiatric: Pleasant and cooperative with normal mood and affect. Judgment and insight intact. Objective Data Vital Signs Vital Signs: Vital Signs - 24 hr 01/11/25 09:50 01/11/25 14:28 01/11/25 14:40 Temperature 97.3 F L 97.0 F L Pulse Rate 68 68 68 Respiratory Rate 16 18 18 Blood Pressure 153/76 H 104/75 155/85 H Pulse Oximetry 100 100 100 Oxygen Delivery Room Air Simple Face Mask Simple Face Mask Oxygen Flow Rate 8 8 01/11/25 14:55 01/11/25 15:10 01/11/25 15:25 Temperature Pulse Rate 68 68 63 Respiratory Rate 18 12 12 Blood Pressure 150/80 H 166/52 H 162/63 H Pulse Oximetry 100 97 95 Oxygen Delivery Simple Face Mask Room Air Room Air Oxygen Flow Rate 8 01/11/25 15:40 01/11/25 15:55 01/11/25 16:15 Temperature 97.5 F L Pulse Rate 70 73 72 Respiratory Rate 14 14 15 Blood Pressure 167/74 H 168/65 H 188/84 H Pulse Oximetry 95 95 97 Oxygen Delivery Room Air Room Air Oxygen Flow Rate 01/11/25 16:45 01/11/25 17:45 01/11/25 21:45 Temperature 97.8 F 96.1 F L 98.6 F Pulse Rate 71 79 85 Respiratory Rate 15 15 18 Blood Pressure 174/90 H 150/69 H 150/75 H Pulse Oximetry 96 98 99 Oxygen Delivery Oxygen Flow Rate 01/12/25 01:45 Temperature 98.4 F Pulse Rate 79 Respiratory Rate 18 Blood Pressure 145/71 H Pulse Oximetry 100 Oxygen Delivery Oxygen Flow Rate Intake/Output Intake/Output: Intake & Output 01/09/25 01/10/25 01/11/25 01/12/25 23:59 23:59 23:59 23:59 Intake Total 940 50 Balance 940 50 Meds/Results Medications: Active Medications Generic Name Dose Route Start Last Admin Trade Name Freq PRN Reason Stop Dose Admin Acetaminophen 650 mg 01/11/25 18:00 01/12/25 05:21 Acetaminophen 325 Mg Tablet PO 650 mg Q6HR DIXIE Administration Acetaminophen 500 mg 01/11/25 16:00 Acetaminophen 500 Mg Tablet PO Q6H PRN Pain Rated 1-3 Acyclovir 800 mg 01/11/25 17:00 01/11/25 17:02 Acyclovir 400 Mg Tablet PO 800 mg BID DIXIE Administration Amlodipine Besylate 5 mg 01/12/25 09:00 Amlodipine Besylate 5 Mg Tablet PO DAILY DIXIE Aspirin 81 mg 01/11/25 17:00 01/11/25 17:02 Aspirin 81 Mg Enteric Tablet PO 81 mg BID DIXIE Administration Atorvastatin Calcium 10 mg 01/12/25 09:00 Atorvastatin 10 Mg Tablet BY MOUTH DAILY DIXIE Brimonidine Tartrate 1 drop 01/11/25 21:00 01/11/25 20:40 Brimonidine Tartrate 0.2% Op Soln 5 Ml Btl LEFT EYE 1 drop Q12HR DIXIE Administration Cyclobenzaprine HCl 10 mg 01/11/25 16:00 01/11/25 17:02 Cyclobenzaprine Hcl 10 Mg Tablet PO 10 mg Q8H PRN Administration Muscle Spasm Diphenhydramine HCl 25 mg 01/11/25 16:00 Diphenhydramine Hcl Inj 50 Mg/Ml Vial IV PUSH Q6H PRN Itching Famotidine 20 mg 01/11/25 21:00 01/11/25 20:39 Famotidine 20 Mg Tablet PO 20 mg Q12HR DIXIE Administration Hydromorphone HCl 1 mg 01/11/25 16:14 01/11/25 16:57 Hydromorphone Hcl Inj (*Crx) 2 Mg/Ml Vial IV PUSH 1 mg Q2H PRN Administration Breakthrough Pain Rated 7-10 or NPO Hydromorphone HCl 0.5 mg 01/11/25 16:14 Hydromorphone Hcl Inj (*Crx) 2 Mg/Ml Vial IV PUSH Q2H PRN Breakthrough Pain Rated 4-6 or NPO Sodium Chloride 1,000 mls @ 125 mls/hr 01/11/25 16:00 01/11/25 17:03 Normal Saline Iv IV CONT Not Given .Q8H DIXIE Cefazolin Sodium 2 gm in 50 mls @ 100 mls/hr 01/11/25 16:00 01/12/25 00:20 Ancef 2 Gm/D5w 50 Ml IVPB 01/12/25 08:29 Infused Q8H DIXIE Infusion Meloxicam 7.5 mg 01/11/25 17:00 01/11/25 17:02 Meloxicam 7.5 Mg Tablet PO 7.5 mg BID DIXIE Administration Naloxone HCl 0.1 mg 01/11/25 16:00 Naloxone Hcl 0.4 Mg/Ml Vial IV PUSH Q2M PRN Opiate Reversal Ondansetron HCl 4 mg 01/11/25 16:00 01/11/25 17:02 Ondansetron Inj 4 Mg/2 Ml Vial IV PUSH 4 mg Q4H PRN Administration Nausea And Vomiting Oxycodone HCl 2.5 mg 01/11/25 16:00 Oxycodone Hcl (*Crx) 2.5 Mg Tab Ir PO Q4H PRN Pain Rated 4-6 Oxycodone HCl 5 mg 01/11/25 16:00 01/12/25 03:16 Oxycodone Hcl (*Crx) 5 Mg Tab Ir PO 5 mg Q4H PRN Administration Pain Rated 7-10 Pantoprazole Sodium 40 mg 01/12/25 09:00 Pantoprazole 40 Mg Tablet PO QAM [facility] Polyethylene Glycol 17 gm 01/12/25 09:00 Polyethylene Glycol 3350 17 Gm Powd.Pack PO QAM [facility] Prednisolone Acetate 1 drop 01/12/25 09:00 Prednisolone Acetate 1% Ophth 5 Ml LEFT EYE DAILY DIXIE Senna/Docusate Sodium 2 tab 01/11/25 17:00 01/11/25 17:02 Senna/Docusate Sodium Tablet PO 2 tab BID DIXIE Administration Timolol Maleate 1 drop 01/11/25 21:00 01/11/25 20:39 Timolol Maleate 0.5% Op Soln 5 Ml Bottle LEFT EYE 1 drop Q12HR DIXIE Administration Radiology Results: ITS Impressions Hip X-Ray 01/11/25 15:22 IMPRESSION: 1. Right total hip arthroplasty, negative for postoperative purposes. Labs Labs: Laboratory Results - last 24 hr 01/11/25 01/11/25 01/12/25 10:42 11:26 05:20 WBC 13.7 H RBC 3.84 L Hgb 11.5 L Hct 36.6 L MCV 95.3 MCH 29.9 MCHC 31.4 L RDW 13.7 Plt Count 254 MPV 10.7 H Immature Gran % (Auto) 0.4 Neut % (Auto) 78.4 H Lymph % (Auto) 11.1 L Bennett % (Auto) 7.5 Eos % (Auto) 2.3 Baso % (Auto) 0.3 Lymph # (Auto) 1.52 Bennett # (Auto) 1.0 H Eos # (Auto) 0.3 Baso # (Auto) 0.0 Abs Immat Gran (auto) 0.05 H Absolute Neuts (auto) 10.7 H Absolute Nucleated RBC 0.000 Nucleated RBC % 0.0 Blood Type Cancelled A Positive Antibody Screen Cancelled Negative Quality VTE Prophylaxis VTE prophylaxis: pharmacologic ordered Hospitalist [facility] Advance Care Plan I have confirmed that the patient's Advanced Care Plan is present, code status is documented, or surrogate decision maker is listed in patient medical record.: Yes Medication Reconciliation I have utilized all available resources to obtain, update and review the patients current medications (includes all prescriptions, OTC, herbals, cannabis, and nutritional supplements).: Yes The patient is not eligible for med reconciliation; the patient is in a emergent medical situation where delaying treatment would jeopardize the patients health.: Yes
[2025-01-12 06:45] LABS: Alanine Aminotransferase 35 U/L (6-35); Albumin Level 3.9 g/dL (3.5-5.1); Alkaline Phosphatase 97 U/L (38-126); Anion Gap 8 mmol/L (4-12); Aspartate Amino Transferase 51 U/L (14-36); Bilirubin,Total 0.6 mg/dL (0.2-1.3); Blood Urea Nitrogen 12 mg/dL (7-17); Calcium 9.4 mg/dL (8.4-10.2); Carbon Dioxide 25 mmol/L (22-30); Chloride 103 mmol/L (98-107); Estimated CRCL calculation 48 ml/min; Estimated Glomerular Filt Rate 57; Glucose 155 mg/dL (65-110); Magnesium 1.8 mg/dL (1.6-2.3); Potassium 4.8 mmol/L (3.4-5.0); Sodium 136 mmol/L (137-145); Total Protein 6.9 g/dL (6.3-8.2)
[2025-01-12] MEDS: oxyCODONE HCL (*CRX) 2.5 MG TAB IR PO (08:01)
[2025-01-12] MEDS: ceFAZolin 2 GM/D5W 50 ML 2 GM/50 ML BAG IVPB (08:02)
[2025-01-12] MEDS: MELOXICAM 7.5 MG TABLET PO (09:23)
[2025-01-12] MEDS: ACYCLOVIR 400 MG TABLET 800 MG PO (09:23)
[2025-01-12] MEDS: ASPIRIN 81 MG ENTERIC TABLET PO (09:23)
[2025-01-12] MEDS: amLODIPine BESYLATE 5 MG TABLET PO (09:23)
[2025-01-12] MEDS: polyethylene glycoL 3350 17 GM POWD.PACK PO (09:23)
[2025-01-12] MEDS: FAMOTIDINE 20 MG TABLET PO (09:23)
[2025-01-12] MEDS: ATORVASTATIN 10 MG TABLET BY MOUTH (09:23)
[2025-01-12] MEDS: PANTOPRAZOLE 40 MG TABLET PO (09:23)
[2025-01-12] MEDS: SENNA/DOCUSATE SODIUM TABLET 2 TAB PO (09:23)
[2025-01-12] MEDS: BRIMONIDINE TARTRATE 0.2% OP SOLN 5 ML BTL 1 DROP LEFT EYE (09:24)
[2025-01-12] MEDS: TIMOLOL MALEATE 0.5% OP SOLN 5 ML BOTTLE 1 DROP LEFT EYE (09:24)
[2025-01-12] MEDS: prednisoLONE ACETATE 1% OPHTH 5 ML 1 DROP LEFT EYE (09:24)
--- NOTE | 2025-01-12 11:25 | PC.NURSE ---
Patient DC home with instructions on wound care, therapy, repotable signs and symptoms. Patient ambulates with walker, able to void. Questions answered, daughter present on DC.
== END 2025-01-12 10:50 | disposition home or self-care (01) ==
LOC: ANHSURGERY 12:51 → ANH3MEDSUR 16:17
PROVIDERS: Physician Assistant Surgical; PCP Family Medicine; Visit Provider Orthopaedic Surgery
PROC: (CPT 27130; principal; 2025-01-11 12:00)
DX: M16.11 Unilateral primary osteoarthritis, right hip (principal); I12.9 Hypertensive chronic kidney disease with stage 1 through stage 4 chronic kidney disease, or unspecified chronic kidney disease; E11.22 Type 2 diabetes mellitus with diabetic chronic kidney disease; N18.31 Chronic kidney disease, stage 3a; E78.2 Mixed hyperlipidemia; E11.42 Type 2 diabetes mellitus with diabetic polyneuropathy; K21.9 Gastro-esophageal reflux disease without esophagitis; E66.9 Obesity, unspecified; Z68.36 Body mass index [BMI] 36.0-36.9, adult
CPT/HCPCS: 27130; 36415; 73502; 80048; 80076; 83735; 85025; 86850; 86900; 86901; 97110; 97161; 97165; 97530; 97535; A9270; C1713; C1776; J0171; J0690; J1100; J1171; J1885; J2003; J2250; J2270; J2405; J2704; J2795; J3010; J3370; J7120